=== PATIENT | female | born 1930 | race Caucasian/White ===

== ENCOUNTER 2016-12-11 11:52 | Inpatient (IN) | payer MEDICARE ==
[2016-12-11] MEDS ORDERED: Acetaminophen TAB* 325 MG PO PRN (18:14)
[2016-12-11] MEDS ORDERED: Ondansetron INJ* 2 MG/ML VIAL IV PRN (18:14)
[2016-12-11] MEDS ORDERED: HYDROcodone/ACETAMIN 5-325 MG* 1 TAB PO PRN (18:31)
[2016-12-11 19:20] LABS: Hematocrit 37 % (35-47); Hemoglobin 12.4 g/dl (12.0-16.0); Mean Corpuscular HGB Conc 34 g/dl (31-36); Mean Corpuscular Hemoglobin 30 pg (27-31); Mean Corpuscular Volume 88 fL (80-97); Mean Platelet Volume 9 um3 (7.4-10.4); Red Blood Count 4.19 10^6/ul (4.0-5.4); Red Cell Distribution Width 16 % (10.5-15); White Blood Count 6.9 10^3/ul (3.5-10.8)
[2016-12-11 19:31] LABS: BUN/Creatinine Ratio 15.2 (8-20); Calcium 8.9 mg/dL (8.6-10.3); EGFR African American 64.2 (>60); EGFR Non-African American 49.9 (>60)
[2016-12-11] MEDS ORDERED: Tamsulosin CAP* 0.4 MG PO SCH (21:00)
[2016-12-11 21:10] LABS: EGFR African American 62.2 (>60); EGFR Non-African American 48.3 (>60)
[2016-12-11] MEDS: Memantine TAB* 10 MG PO SCH (21:57)
[2016-12-11] MEDS: CMCS Simvastatin TAB(NF) 10 MG TAB PO SCH (21:58)
[2016-12-11] MEDS: Heparin VIAL(*) 5000 UNITS/ML VIAL (FIVE THOUSAND) SUBCUT SCH (22:00)
--- NOTE | 2016-12-11 23:06 | HP ---
CC: Dr. Rueda; Dr. Fernandez; Dr. Wilcox; Dr. Alex * HISTORY AND PHYSICAL: DATE OF ADMISSION: 12/11/16 PRIMARY CARE PROVIDER: Dr. Wilcox. ATTENDING PHYSICIAN WHILE IN THE HOSPITAL: Dr. Balta Katz * (report dictated by Kam Blake NP). CHIEF COMPLAINT: Abnormal CT findings. HISTORY OF PRESENT ILLNESS: I would like to preface this report by saying that the patient has a significant amount of underlying dementia. She is really unable to give much. She can give some history but she is confused and has difficulty with memory. She basically says to me that she was in the [facility] for about few weeks now. She is not quite sure as to why she was admitted there. She while there was found ultimately to have a lytic lesion in the proximal left femur that she was transferred here because of this reason because she continued to have significant amount of hip pain. The patient does not recall why she was transferred here and she does not recall why initially she went into the [facility] on 11/29/16. In touching base with the patient's son , the son stated that Ms. Riggins is 86, she has had dementia and progressive decline since September of this year. She just has not been doing well at home. She has been living alone and unable to care for herself. On 11/29/16, she was found by the patient's daughter- in-law, she was noted to be in stool and noted not be caring for herself, so she was brought to the hospital. She was admitted directly to the swing status to [facility]. The patient was having experiencing pain in her left hip and knee and not being getting out of bed for about 2 weeks prior to admission. She had not been able to walk and the pain had been present for about a month. She had x-rays of the hip and knee that did not reveal any findings. She was deconditioned and dehydrated, so she was admitted. She could not go home safely, so she was admitted to swing bed status , and piecing together the courses of events, it appears that she had on , a CT of the lower extremity, as she continued to have hip and knee pain, where there was found a lytic lesion and then further workup was obtained, and CT of the chest, abdomen, and pelvis was obtained and report there found large right pulmonary mass, likely primary lung neoplasm and pulmonary metastases throughout the lower lobes and multiple bone metastases. The patient at that point was transferred to [facility] after it was felt that she may need orthopedic evaluation for that lytic lesion and she also may need oncology evaluation. Discussing with the patient, she says she still has a significant amount of pain there. She can move the leg but it does hurt. She again has not been walking for some time. The patient denied any acute vomiting, diarrhea. There have been no reports of fevers. There have been no reports of abdominal pain. She denied any chest pain. She denies having any shortness of breath. Again, because of the new findings, she was transferred to the [facility] for further workup and evaluation. PAST MEDICAL HISTORY: Significant for: 1. Hypertension. 2. Dementia. 3. Hyperlipidemia. PAST SURGICAL HISTORY: The patient denied. MEDICATIONS: The home meds according to the [facility] notes and I took this off the H and P when she went to swing include: 1. Namenda 10 mg p.o. b.i.d. 2. Metoprolol 100 mg daily. 3. Simvastatin 5 mg at bedtime. 4. Aricept 5 mg daily. 5. Lisinopril/hydrochlorothiazide 1 tablet daily. ALLERGIES TO MEDICATIONS: Include no known drug allergies. FAMILY HISTORY: She cannot remember her parents. SOCIAL HISTORY: She is a former smoker. She does not drink alcohol. She had been living alone. Her surrogate decision makers are her children. REVIEW OF SYSTEMS: There is no documented fever. She does state that she has lost weight but she is unable to quantify how much. She denies any double vision. There is no ear discharge. She denies having any rhinorrhea. No sore throat. No thyroid enlargement. Denied having any chest pain. There is no orthopnea. There is no nocturnal dyspnea. She denies having any abdominal pain. There was no nausea, no vomiting. No dysuria, no frequency. There was no seizure, no loss of consciousness. No pruritus and no skin ulcerations. Review of 14 systems completed, all others negative. PHYSICAL EXAMINATION GENERAL: At this time, Ms. Riggins is an 86-year-old female patient. She is sitting in the hospital bed. She does not appear to be in any acute distress. VITAL SIGNS: Reveal blood pressure 119/50 with a pulse of 60, respirations 15, O2 sat 97%, temperature 97.8. HEENT: Head: Atraumatic. Eyes: EOMs are intact. Sclerae anicteric. Not pale. Throat: Oral mucosa appears to be dry. No oropharyngeal erythema. NECK: Supple. LUNGS: Clear to auscultation. No wheezes, rales, or rhonchi. HEART: Heart sounds S1 and S2. Regular rate and rhythm. No murmurs, rubs, or gallops. ABDOMEN: Soft, flat, nontender. Bowel sounds present. EXTREMITIES: Distal CSM checks intact to lower extremities. No peripheral edema. NEUROLOGIC: She is awake. She knows she is in the hospital. She is confused with month. She knows her name. Speech is clear. Tongue midline. She had no gross focal deficits. SKIN: Intact. DIAGNOSTIC STUDIES/LAB DATA: These are from 12/09/16, revealed she had a WBC of 5.59, RBC of 4.15, hemoglobin of 12.3, hematocrit of 36, platelet count of 137. Urine showed 3+ blood, 2+ bacteria. She was treated for UTI on 12/03/16. Sodium was 134, potassium 3.9, chloride 100, bicarb 28, BUN 19, creatinine 1.30 , glucose of 110. She had multiple imaging over at [facility]. CT chest, abdomen, and pelvis showed impression: Findings consistent with large right pulmonary mass likely primary lung neoplasm with ipsilateral and contralateral pulmonary metastases and findings consistent with multiple bone metastases. Consider bone scan as interval followup to determine needle biopsy of the right pulmonary lesion might be useful to determine histology. Unfortunately, I do not have the reports for the x-rays, but I do have report from the patient's CT lower extremity, which showed irregular lytic lesion in the anterior aspect of the proximal metaphysis of the left femur highly suspicious for malignant bone neoplasm, further characterization with MRI of the left femur with contrast is recommended. Old medical records were reviewed. ASSESSMENT AND PLAN: Ms. Riggins is an 86-year-old female patient coming in to the [facility] today for further evaluation of lytic lesion, in addition to this a pulmonary mass. She will be admitted under inpatient status for: 1. Pulmonary mass with metastases and lytic lesion. Again, I suspect that this is probably primary lung cancer. Unfortunately, I do not have any tissue. I did touch base with Dr. Talley, who will evaluate the films and see which lesion may be most amenable to biopsy and my plan will be to get in touch with Dr. Rueda to evaluate the patient and also Dr. Alex, who according to Dr. Cuba, who accepted the patient is aware of the patient's transfer. At this point, I did touch base with on-call Orthopedics just to go over activity and the patient at this point will be placed on bedrest. I have ordered pain medications for the patient for the time being and we will continue to proceed with further workup. 2. Dementia. Continue supportive care. 3. Hypertension. Continue meds as prescribed. 4. Hyperlipidemia. Continue statin therapy. 5. DVT prophylaxis. She is high risk and will be placed on heparin subcu. 6. Code status. She wishes to be a DNR. 7. Fluids, electrolytes, and nutrition. She can have a regular diet. TIME SPENT: On the admission was 60 minutes; greater than half the time was spent [id number] with the patient obtaining my history and physical, other half the time was spent going over the plan of care with the patient and implementing the plan of care. I did discuss the plan of care with my attending, Dr. Katz; he is in agreement. KAM BLAKE, MICHELLE [id number]/[facility] #: [id number] MTDD
[2016-12-12 01:13] LABS: Urine Bacteria Absent (Absent); Urine Bilirubin Negative (Negative); Urine Glucose Negative (Negative); Urine Nitrite Negative (Negative)
[2016-12-12] MEDS: Heparin VIAL(*) 5000 UNITS/ML VIAL (FIVE THOUSAND) SUBCUT SCH ×2 (05:55→20:40)
[2016-12-12 06:06] LABS: Hematocrit 35 % (35-47); Hemoglobin 12.2 g/dl (12.0-16.0); Mean Corpuscular HGB Conc 35 g/dl (31-36); Mean Corpuscular Hemoglobin 30 pg (27-31); Mean Corpuscular Volume 86 fL (80-97); Mean Platelet Volume 9 um3 (7.4-10.4); Red Blood Count 4.09 10^6/ul (4.0-5.4); Red Cell Distribution Width 16 % (10.5-15); White Blood Count 6.5 10^3/ul (3.5-10.8)
[2016-12-12 06:19] LABS: BUN/Creatinine Ratio 14.7 (8-20); Calcium 8.4 mg/dL (8.6-10.3); EGFR African American 66.4 (>60); EGFR Non-African American 51.6 (>60)
[2016-12-12] MEDS: Memantine TAB* 10 MG PO SCH ×2 (08:45→20:39)
[2016-12-12] MEDS: Polyethylene Glycol 3350* 17 GM PACKET PO SCH (08:45)
[2016-12-12] MEDS: Donepezil TAB* 5 MG PO SCH (08:45)
--- NOTE | 2016-12-12 08:51 | CONSULT ---
Consultation - Reason for Consultation Reason for Consultation: diffusely metastatic disease Ordering Provider: Arabella Gonzales Chief Complaint: transfer from [facility] History of Present Illness: Note history almost entirely from chart as Cele is fairly demented. Per admission note Cele was found at home in stool and unable to ambulate by a family member. She was apparently living at home alone despite her degree of dementia. She was admitted directly to a swing bed at [place] but apparently was not ambulatory and complaining of hip pain and so 2 weeks into her admission there had a hip CT which showed a destructive lytic lesion in her left proximal femur. This prompted CT C/A/P which I have personally reviewed and shows innumerable pulmonary lesions with a dominant Right sided lesion and L3 lytic lesion with thecal impingement. She was transferred for management of this. She is pleasantly demented and very unsure as to why she is in the hospital. She adamantly denies any hip/leg pain on the left or back pain. 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 She denies cough or SOB. She does think she has weight loss as her ring feels loose to her. She has a long standing history of tobacco use, but quit a long time ago. She has emphysema on her imaging. Allergies/Medications Medication: Acetaminophen (Tylenol Tab*) 650 mg PO Q4H PRN PRN Reason: FEVER/PAIN Hydrocodone Bitart/Acetaminophen ([place] 5-325 Tab*) 1 tab PO Q6H PRN PRN Reason: PAIN Aspirin (Aspirin Low Dose Tab*) 81 mg PO DAILY [facility] Last Admin: 12/12/16 08:45 Dose: 81 mg Donepezil HCl (Aricept Tab*) 10 mg PO DAILY [facility] Last Admin: 12/12/16 08:45 Dose: 10 mg Heparin Sodium (Porcine) (Heparin Vial(*)) 5,000 units SUBCUT Q8HR [facility] Last Admin: 12/12/16 05:55 Dose: 5,000 units Memantine (Namenda Tab*) 10 mg PO BID [facility] Last Admin: 12/12/16 08:45 Dose: 10 mg Metoprolol Tartrate (Lopressor Tab*) 100 mg PO DAILY [facility] Last Admin: 12/12/16 08:45 Dose: 100 mg Nystatin (Nystatin Suspension*) 500,000 units PO QID [facility] Stop: 12/19/16 08:45 Ondansetron HCl (Zofran Inj*) 4 mg IV Q6H PRN PRN Reason: NAUSEA Polyethylene Glycol/Electrolytes (Miralax*) 17 gm PO DAILY [facility] Last Admin: 12/12/16 08:45 Dose: 17 gm Simvastatin (Zocor(Nf)) 5 mg PO BEDTIME [facility] Last Admin: 12/11/16 21:58 Dose: 5 mg History - Past Medical History Other History: She is unclear on her history but does take antihypertensives. she can not remember having any surgeries - Family History Other Family History: she can not remember any family history - Social History Other Social History: she reports that she lives alone. she states that she cooks when there is food. she does not know how the food gets to her house and thinks her son pays her bills. Review of Systems - Review of Systems General Comments: very unreliable historian but reports only weight loss. she denies everything else other than left knee pain Physical Exam - Physical Exam Physical Examination: Vital Signs Temp Pulse Resp BP Pulse Ox 98.3 F 75 18 94/59 95 12/12/16 03:59 12/12/16 03:59 12/12/16 03:59 12/12/16 03:59 12/12/16 03:59 lying flat in bed in NAD perr eomi op thrush on tongue, very dry surprisingly clear to ascultation s1 s2 nl soft nt +Bs no LE edema decreased mobility of left leg, denies pain but can not fully lift it off the bed skin intact no NIKUNJ oriented to hospital, spring, no clue on year Results - Lab Results Lab Results: 12/11/16 12/11/16 12/11/16 18:31 18:31 20:09 WBC 6.9 RBC 4.19 Hgb 12.4 Hct 37 MCV 88 MCH 30 MCHC 34 RDW 16 H Plt Count 146 L MPV 9 Neut % (Auto) 80.5 Lymph % (Auto) 9.5 L [place] % (Auto) 6.5 Eos % (Auto) 2.8 Baso % (Auto) 0.7 Absolute Neuts (auto) 5.5 Absolute Lymphs (auto) 0.7 L Absolute Monos (auto) 0.4 Absolute Eos (auto) 0.2 Absolute Basos (auto) 0.1 Absolute Nucleated RBC 0 Nucleated RBC % 0 INR (Anticoag Therapy) APTT Sodium 131 L Potassium 4.0 Chloride 97 L Carbon Dioxide 26 Anion Gap 8 BUN 16 17 Creatinine 1.05 H 1.08 H Est GFR ( Amer) 64.2 62.2 Est GFR (Non-Af Amer) 49.9 48.3 BUN/Creatinine Ratio 15.2 Glucose 142 H Calcium 8.9 Urine Color Urine Appearance Urine pH Ur Specific [place] Urine Protein Urine Ketones Urine Blood Urine Nitrate Urine Bilirubin Urine Urobilinogen Ur Leukocyte Esterase Urine WBC (Auto) Urine RBC (Auto) Ur Squamous Epith Cells Urine Bacteria Urine Glucose 12/11/16 12/12/16 12/12/16 20:09 00:35 05:56 WBC 6.5 RBC 4.09 Hgb 12.2 Hct 35 MCV 86 MCH 30 MCHC 35 RDW 16 H Plt Count 135 L MPV 9 Neut % (Auto) 72.4 Lymph % (Auto) 13.4 L [place] % (Auto) 8.8 Eos % (Auto) 4.8 Baso % (Auto) 0.6 Absolute Neuts (auto) 4.7 Absolute Lymphs (auto) 0.9 L Absolute Monos (auto) 0.6 Absolute Eos (auto) 0.3 Absolute Basos (auto) 0 Absolute Nucleated RBC 0 Nucleated RBC % 0 INR (Anticoag Therapy) 0.96 APTT 29.1 Sodium Potassium Chloride Carbon Dioxide Anion Gap BUN Creatinine Est GFR ( Amer) Est GFR (Non-Af Amer) BUN/Creatinine Ratio Glucose Calcium Urine Color Straw Urine Appearance Clear Urine pH 6.0 Ur Specific [place] 1.005 L Urine Protein Negative Urine Ketones Trace H Urine Blood 2+ H Urine Nitrate Negative Urine Bilirubin Negative Urine Urobilinogen Negative Ur Leukocyte Esterase Trace H Urine WBC (Auto) 1+(6-10/hpf) H Urine RBC (Auto) Trace(0-2/hpf) Ur Squamous Epith Cells Present H Urine Bacteria Absent Urine Glucose Negative 12/12/16 05:56 WBC RBC Hgb Hct MCV MCH MCHC RDW Plt Count MPV Neut % (Auto) Lymph % (Auto) [place] % (Auto) Eos % (Auto) Baso % (Auto) Absolute Neuts (auto) Absolute Lymphs (auto) Absolute Monos (auto) Absolute Eos (auto) Absolute Basos (auto) Absolute Nucleated RBC Nucleated RBC % INR (Anticoag Therapy) APTT Sodium 132 L Potassium 4.0 Chloride 100 L Carbon Dioxide 23 Anion Gap 9 BUN 15 Creatinine 1.02 H Est GFR ( Amer) 66.4 Est GFR (Non-Af Amer) 51.6 BUN/Creatinine Ratio 14.7 Glucose 90 Calcium 8.4 L Urine Color Urine Appearance Urine pH Ur Specific [place] Urine Protein Urine Ketones Urine Blood Urine Nitrate Urine Bilirubin Urine Urobilinogen Ur Leukocyte Esterase Urine WBC (Auto) Urine RBC (Auto) Ur Squamous Epith Cells Urine Bacteria Urine Glucose Assessment and Plan Impression: 86 yo F w moderate dementia and a long standing smoking history presenting with failure to thrive and unability to ambulate and found to have a destructive lesion in her left femur, L3 lytic lesion and multiple pulmonary lesions suspicious for metastatic lung cancer. Her case is clearly complicated by her inability to retain information and report complaints. I have reviewed her imaging with Dr. Enamorado from radiology who feels that her left hip lesion would be amenable to ultrasound guided biopsy. I do think it would be reasonable to discuss surgery vs. palliative radiation with orthopedics and radiation oncology. I suspect that without surgery she will be nonambulatory for the duration of her life. In terms of palliative treatment for her cancer, I suspect that hospice will be the appropriate option for her given her age and my suspicion that she would not be able to reliably report side effects from any palliative therapy. This would clearly be the most appropriate conversation to have with family members around. I do think it is reasonable to get a MRI of her brain and lumbar spine with and without contrast as well to rule out RECHECKER disease and possible spinal cord compression. Finally I have taken the liberty of stopping her lisinopril given her relative hypotension this am and starting nystatin for her thrush.
[2016-12-12] MEDS ORDERED: Aspirin Low Dose CHEW TAB* 81 MG PO SCH (09:00)
[2016-12-12] MEDS ORDERED: Lisinopril TAB* 10 MG PO SCH (09:00)
[2016-12-12] MEDS ORDERED: Metoprolol Tartrate TAB* 100 MG TAB PO SCH (09:00)
[2016-12-12] MEDS ORDERED: fentaNYL* 50 MCG/ML 2 ML VIAL (100 MCG VIAL) ONE (10:36)
[2016-12-12] MEDS: Nystatin SUSPENSION* 100000 UNITS/ML 5 ML UDC PO SCH ×4 (11:25→20:40)
--- NOTE | 2016-12-12 12:49 | RAD ---
INDICATION: New workup for metastatic tumor. COMPARISON: December 09, 2016 CT. Written informed consent obtained from the patient's son. Timeout performed. PROCEDURE: Routine aseptic skin prep anterior proximal LEFT thigh. Exophytic lesion extending anteriorly from the subtrochanteric segment of the LEFT femur visualized on preliminary ultrasound scanning. Overlying soft tissues anesthetized with 4 mL 1% lidocaine. 2 fine-needle aspiration passes made with 22-gauge needles. Samples deemed sufficient by pathology. Procedure well tolerated without immediate complication. Sterile dressing applied. IMPRESSION: Successful ultrasound-guided LEFT femur bone biopsy.
--- NOTE | 2016-12-12 13:59 | PN ---
Subjective Date of Service: 12/12/16 Interval History: HOSPITALIST PROGRESS NOTE Patient seen and examined at bedside. Pleasantly confused, offers no complaints at this time. Denies pain. Family History: Unchanged from Admission Social History: Unchanged from Admission Past Medical History: Unchanged from Admission Objective Active Medications: Acetaminophen (Tylenol Tab*) 650 mg PO Q4H PRN PRN Reason: FEVER/PAIN Hydrocodone Bitart/Acetaminophen ([place] 5-325 Tab*) 1 tab PO Q6H PRN PRN Reason: PAIN Donepezil HCl (Aricept Tab*) 10 mg PO DAILY [facility] Last Admin: 12/12/16 08:45 Dose: 10 mg Memantine (Namenda Tab*) 10 mg PO BID [facility] Last Admin: 12/12/16 08:45 Dose: 10 mg Metoprolol Tartrate (Lopressor Tab*) 100 mg PO DAILY [facility] Last Admin: 12/12/16 08:45 Dose: 100 mg Nystatin (Nystatin Suspension*) 500,000 units PO QID [facility] Stop: 12/19/16 08:45 Last Admin: 12/12/16 13:17 Dose: 500,000 units Ondansetron HCl (Zofran Inj*) 4 mg IV Q6H PRN PRN Reason: NAUSEA Polyethylene Glycol/Electrolytes (Miralax*) 17 gm PO DAILY [facility] Last Admin: 12/12/16 08:45 Dose: 17 gm Simvastatin (Zocor(Nf)) 5 mg PO BEDTIME [facility] Last Admin: 12/11/16 21:58 Dose: 5 mg Vital Signs 12/12/16 12/12/16 12/12/16 03:59 08:00 08:55 Temperature 98.3 F 97.9 F Pulse Rate 75 76 Respiratory 18 17 17 Rate Blood Pressure 94/59 114/49 (mmHg) O2 Sat by Pulse 95 97 Oximetry Oxygen Devices in Use Now: None Appearance: Pleasant elderly lady lying in bed in NAD. Eyes: No Scleral Icterus Ears/Nose/Mouth/Throat: Mucous Membranes Moist, - - + oral thrush Neck: Trachea Midline Respiratory: Symmetrical Chest Expansion and Respiratory Effort, Clear to Auscultation Cardiovascular: RRR - Normal S1 and S2 Abdominal: NL Sounds; No Tenderness; No Distention Extremities: No Edema Neurological: - - AAOx2 (self and place), NIELSEN Lines/Tubes/Other Access: Clean, Dry and Intact Peripheral IV Nutrition: Taking PO's Result Diagrams: 12/12/16 05:56 12/12/16 05:56 Assess/Plan/Problems-Billing Assessment: Mrs. Riggins is an 86yo F with PMH of HTN, HLD, dementia, tobacco abuse, admitted to [facility] for progressive decline of her condition and left hip pain, found to have a large right pulmonary mass and multiple osseous lesion suggestive of metastatic disease, including a large lesion to her left hip. - Patient Problems (1) Lung mass Comment: - CT C/A/P shows large right pulmonary mass with ipsilateral and contralateral metastases, and also multple bony mets. - With her h/o tobacco abuse, eduar is likely a primary lung CA with mets. - Oncology input appreciated - Dr. Rueda discussed the case with Dr. Enamorado and they feel the best tissue source would be her left hip - plan for US guided biopsy today. - Also recommended MRI brain and LS spine with and without contrast to r/o further metastatic disease. - Will await path result, but suspect the best option for this patient would be Hospice, considering her advanced disease, but this will need to be discussed with her family after the results, when we know more about her prognosis. (2) Neoplasm of femur Comment: - S/p US guided biopsy today. - Orthopedics consult requested to see if patient is a surgical candidate for stabilization, as she would likely be non-ambulatory without surgery. (3) Dementia Comment: - Continue supportive care. (4) HTN (hypertension) Comment: - BP is on the lower side - Lisinopril was discontinued and we will continue Metoprolol with holding parameters. (5) Oral thrush Comment: - Nystatin. (6) DVT prophylaxis Comment: - SQ heparin. (7) Full code status Comment: - Full code for now, but will need to discuss code status again with her family in light of her diagnosis. Status and Disposition: Inpatient for management of lung tumor with metastases, requiring >48h for stabilization.
[2016-12-12] MEDS ORDERED: Gadoteridol* (CONTRAST) 279.3 MG/ML 10 ML IV ONE (14:13)
[2016-12-12] MEDS ORDERED: LORazepam TAB(*) 0.5 MG PO ONE (14:30)
--- NOTE | 2016-12-12 15:02 | RAD ---
HISTORY: Lytic lesion left femur COMPARISONS: CT dated December 08, 2016, biopsy dated December 12, 2016 VIEWS: 6, frontal and lateral views of the left hip and femur FINDINGS: BONE DENSITY: There is diffuse osteopenia. BONES: Again noted is an osteolytic lesion of the subtrochanteric proximal left femur, measuring approximately 6.6 x 2.7 cm in size, corresponding to the lesion noted on CT and the lesion biopsied earlier the same date. JOINTS: There is no arthropathy. ALIGNMENT: There is no dislocation. SOFT TISSUES: Unremarkable. OTHER FINDINGS: None. IMPRESSION: AGAIN NOTED IS THE BIOPSIED, OSTEOLYTIC LESION OF THE PROXIMAL LEFT FEMUR
[2016-12-12] MEDS: CMCS Simvastatin TAB(NF) 10 MG TAB PO SCH (20:39)
--- NOTE | 2016-12-12 21:34 | CONS ---
Amended report to enter date of consultation. CONSULTATION REPORT: DATE OF CONSULTATION: 12/12/2016. CONSULTATION: Orthopedic Surgery, Dr. Huang. REASON FOR CONSULT: Left hip pain, inability to ambulate. HISTORY OF PRESENT ILLNESS: The patient is a very pleasant 86-year-old female who was found in her home by her daughter in law, nonambulatory. She was taken to [facility] and was admitted. She underwent evaluation, where she was found to have a pulmonary nodule, lytic lesions in the L3 region, and a lytic region in the proximal left femur per report. She was transferred to [facility] due to the lytic lesions and per report due to pain. The patient was examined with her daughter in the room today. The patient's history is poor due to dementia. However, the daughter is able to give a good history. The mother had been in good health living independently ambulating with only a cane well prior to the incident. She had medical history significant for hypertension, dementia, and hyperlipidemia, however, had no known cancer diagnosis. Due to the patient's dementia, she is forgetful, but she has been told that she may have lung cancer and becomes upset when hearing this. She currently states that she does not have any pain in her left hip, lower spine, or chest area. She reports having a longstanding history of left knee, which is why she needed a cane to ambulate. She has been on bedrest since arrival to [facility]. PAST MEDICAL HISTORY: 1. Hypertension. 2. Dementia. 3. Hyperlipidemia. 4. Pulmonary nodules, lytic bone lesions, status post recent biopsy of the left femoral lytic lesion today. PAST SURGICAL HISTORY: The patient denies. MEDICATIONS: Include: 1. Namenda 10 mg p.o. b.i.d. 2. Metoprolol 100 mg daily. 3. Simvastatin 5 mg at bedtime. 4. Aricept 5 mg daily. 5. Lisinopril/hydrochlorothiazide 1 tablet daily for her home medications. ALLERGIES: No known drug allergies. FAMILY HISTORY: The patient could not remember her parents. SOCIAL HISTORY: Former smoker, no alcohol use. Living independently alone. Her son is her power of assistant produce manager. REVIEW OF SYSTEMS: The patient denies any chest pain, shortness of breath. No abdominal complaints. No complaints of pain anywhere at this timeframe other than chronic left knee pain. PHYSICAL EXAM: General: Well appearing, in no acute distress. Alert and oriented. Sitting in hospital bed joking pleasantly with daughter. Vital signs : Temperature 97.9, pulse rate 55, respiratory rate 15, O2 saturation on room air 96%, blood pressure 105/44. HEENT: Atraumatic. EOMI. Normocephalic. Lungs: Clear to auscultation bilaterally. No crackles, rhonchi or wheezes. Heart: Regular rate and rhythm. No murmurs, gallops or rubs. Abdomen: Soft, nontender, nondistended. No organomegaly present. Extremities: Bilateral posterior tibial pulses 2+. Full dorsiflexion and plantar flexion with equal strength bilaterally. Negative Homans' sign bilaterally. No tenderness with palpation over right or left knee joints. Full strength with flexion and extension, bilateral lower extremities. Full strength with abduction bilaterally; however, increased pain on the left hip with adduction against resistance. Tenderness to palpation over the left groin region; however, close to recent biopsy site. No edema. No signs of ecchymosis over the left hip. No tenderness over the greater trochanter. Neurologic: Alert and oriented. Sensation to light touch equal, bilateral lower extremities. ASSESSMENT AND PLAN: The patient is a very pleasant 86-year-old female who was admitted to [facility] after being discovered to have lytic lesions, pulmonary lesions , has a nonambulatory status with associated pain. 1. The patient will undergo X-rays today of the left hip and femur for further evaluation. These will be evaluated by Dr. Huang. I have discussed with the patient and her daughter the need for surgery in the future to help stabilize this area and prevent fracture. Currently, surgery is planned on Thursday with Dr. Alex for a femoral shira placement. 2. Awaiting biopsy results from that femur biopsy performed today. I discussed with Dr. Rueda if surgery will be feasible to do of the patient's life expectancy. She was in agreement that the surgery should be done to provide the best quality of life for the patient as she was fully ambulatory prior to this injury. She will follow the patient with regards to the oncologic workup. 3. Continue bedrest status throughout the weekend, physical therapy for obtaining muscle strength, flexibility, and the report on MRI of the brain and lumbar spine pending for evaluation of possible cauda equina or further metastatic disease. THOR MASON [id number]/[facility] #: [id number] [facility] MEDICAL CENTERLeslee
--- NOTE | 2016-12-13 00:17 | CONS ---
CC: Dr. Wilcox CONSULTATION REPORT: DATE OF ADMISSION: 12/11/16 DATE OF CONSULTATION: 12/12/16 PRIMARY CARE DOCTOR: Dr. Wilcox. CHIEF COMPLAINT: Abnormal CT findings with left hip lesion. HISTORY OF PRESENT ILLNESS: This is a pleasant 86-year-old female with a history of dementia, who was at [facility]. She does not report having any medical problems or any issues. She does not have any specific hip pain, but she reports knee pain. She denies any shortness of breath or chest pain. Based on the notes, she went to [place] on November 29. She was found by her [id number] with poor hygiene and inability to care for herself. On December 08, she had a CT scan of her hip and had progressive knee pain. A lytic lesion was found and then CT of chest, abdomen, and pelvis were obtained and found a large pulmonary mass with lung neoplasm and diffuse metastasis. She has already seen Oncology and had been worked up. The Orthopedic consult is for her left hip lesion. PAST MEDICAL HISTORY: Significant for high blood pressure, dementia, hyperlipidemia. PAST SURGICAL HISTORY: Negative. MEDICATIONS: 1. Namenda. 2. Metoprolol. 3. Simvastatin. 4. Aricept. 5. Lisinopril. 6. Hydrochlorothiazide. ALLERGIES: None. FAMILY HISTORY: She denies because she cannot remember her family. SOCIAL HISTORY: She is a former smoker. She does not drink alcohol. She lives alone. Her surrogate decision maker is her children. REVIEW OF SYSTEMS: She denies. She has some left knee pain. She denies any shortness of breath or chest pain. No nausea or vomiting based on the hospital notes. The 14-point review of systems is negative with the exception of left knee pain. PHYSICAL EXAMINATION: General: She appears to be in no acute distress. She is alert to herself. She knows she is in the hospital setting. She is hugging her stuffed animal. Vital Signs: Most recent vitals demonstrate temperature of 98.2, pulse rate of 80, respiratory rate of 18, oxygen saturation of 95, blood pressure 145/67. HEENT: EOMI. Chest: Clear. Heart: Regular rate and rhythm. Abdomen: Soft, nontender. Extremities: Examination of the left leg demonstrates the skin is intact. There is no erythema or she is not tender on log roll or with axial load. She is tender about the left knee. Her calf is soft and nontender. She is sensate to light touch about the first dorsal webspace, medial, lateral, dorsal and plantar foot although it is hard to say if she actually notes on doing that. She has 2+ PT pulse. LABORATORY DATA/DIAGNOSTIC DATA: On 12/12/16, white count of 6.5, hematocrit of 35, platelet count of 135. Sodium of 132, potassium 4.0, chloride 100, carbon dioxide 23, BUN 15, creatinine 1.02, calcium is 8.4. X-rays demonstrate a left hip lytic lesion in the intertrochanteric neck that does not encompass the entire subtrochanteric neck, it encompasses more than 50%. ASSESSMENT AND PLAN: She has newly diagnosed lung cancer with left hip lesion, this could potentially become high risk for fracture as discussed with my partners Dr. Alex, this will be amenable to elective intramedullary nailing, which Dr. Alex will be able to take care of on Thursday. For now, I would tell her she is allowed to have bedrest, but she is allowed to get into a chair. She is not allowed to stand or walk or twist or pivot, but she needs q.2 turns in a soft bed to allow for bedrest for 2 days. We will continue to follow her in the hospital and she should be n.p.o. after midnight. [id number]/[facility] #: [id number] MTDD
[2016-12-13] MEDS: Heparin VIAL(*) 5000 UNITS/ML VIAL (FIVE THOUSAND) SUBCUT SCH ×3 (06:19→20:31)
[2016-12-13] MEDS: Polyethylene Glycol 3350* 17 GM PACKET PO SCH (09:01)
[2016-12-13] MEDS: Nystatin SUSPENSION* 100000 UNITS/ML 5 ML UDC PO SCH ×5 (09:01→20:30)
[2016-12-13] MEDS: Donepezil TAB* 5 MG PO SCH (09:01)
[2016-12-13] MEDS: Metoprolol Tartrate TAB* 100 MG TAB PO SCH (09:01)
[2016-12-13] MEDS: Memantine TAB* 10 MG PO SCH ×2 (09:01→20:30)
--- NOTE | 2016-12-13 12:32 | PN ---
Subjective Date of Service: 12/13/16 Interval History: Patient denies pain. She has no clear understanding why she is in hospital. Here w/ son Frank and daughter. Frank is HCP. Had biopsy LT femur yesterday, results pending. Patient says she wants to go home and enjoy the sunshine. Family History: Unchanged from Admission Social History: Unchanged from Admission Past Medical History: Unchanged from Admission Objective Active Medications: Acetaminophen (Tylenol Tab*) 650 mg PO Q4H PRN PRN Reason: FEVER/PAIN Hydrocodone Bitart/Acetaminophen (Luckey 5-325 Tab*) 1 tab PO Q6H PRN PRN Reason: PAIN Donepezil HCl (Aricept Tab*) 10 mg PO DAILY [facility] Last Admin: 12/13/16 09:01 Dose: 10 mg Heparin Sodium (Porcine) (Heparin Vial(*)) 5,000 units SUBCUT Q8HR [facility] Last Admin: 12/13/16 06:19 Dose: 5,000 units Memantine (Namenda Tab*) 10 mg PO BID [facility] Last Admin: 12/13/16 09:01 Dose: 10 mg Metoprolol Tartrate (Lopressor Tab*) 100 mg PO DAILY [facility] Last Admin: 12/13/16 09:01 Dose: 100 mg Nystatin (Nystatin Suspension*) 500,000 units PO QID [facility] Stop: 12/19/16 08:45 Last Admin: 12/13/16 09:15 Dose: Not Given Ondansetron HCl (Zofran Inj*) 4 mg IV Q6H PRN PRN Reason: NAUSEA Polyethylene Glycol/Electrolytes (Miralax*) 17 gm PO DAILY [facility] Last Admin: 12/13/16 09:01 Dose: 17 gm Simvastatin (Zocor(Nf)) 5 mg PO BEDTIME [facility] Last Admin: 12/12/16 20:39 Dose: 5 mg Vital Signs 12/13/16 12/13/16 12/13/16 00:00 00:24 03:18 Temperature 36.9 C 36.8 C Pulse Rate 75 87 Respiratory 20 20 Rate Blood Pressure 116/61 126/61 (mmHg) O2 Sat by Pulse 93 94 93 Oximetry 12/13/16 06:48 Temperature 36.8 C Pulse Rate 83 Respiratory Rate Blood Pressure 129/67 (mmHg) O2 Sat by Pulse 94 Oximetry Oxygen Devices in Use Now: None Appearance: no distress, pleasant/cooperative Eyes: No Scleral Icterus Neck: NL Appearance and Movements; NL JVP Respiratory: Clear to Auscultation Cardiovascular: NL Sounds; No Murmurs; No JVD, RRR Abdominal: NL Sounds; No Tenderness; No Distention Extremities: No Edema Neurological: - - alert, oriented to person, "hospital" Lines/Tubes/Other Access: Clean, Dry and Intact Peripheral IV Result Diagrams: 12/12/16 05:56 12/12/16 05:56 Microbiology and Other Data: Microbiology Assess/Plan/Problems-Billing Assessment: Mrs. Riggins is an 86yo F with PMH of HTN, HLD, dementia, tobacco abuse, admitted to [facility] for progressive decline of her condition and left hip pain, found to have a large right pulmonary mass and multiple osseous lesion suggestive of metastatic disease, including a large lesion to her left hip. - Patient Problems (1) Lung mass Current Visit: Yes Status: Acute Priority: High Code(s): R91.8 - OTHER NONSPECIFIC ABNORMAL FINDING OF LUNG FIELD SNOMED Code(s): 799840435 Comment: - CT C/A/P shows large right pulmonary mass with ipsilateral and contralateral metastases, and also multple bony mets. - oncology input appreciated. Biopsy results pending. Would consider palliative radiation and any chemotherapy w/ low risk profile - MRI spine and brain pending - Discussed above w/ patient and 2 children, including HCP. (2) Dementia Current Visit: Yes Status: Chronic Priority: Medium Code(s): F03.90 - UNSPECIFIED DEMENTIA WITHOUT BEHAVIORAL DISTURBANCE SNOMED Code(s): 40540752 Comment: -Memory poor, but patient understands immediate questions, and elects to have non-invasive treatment only. (3) DNR (do not resuscitate) discussion Current Visit: Yes Status: Acute Priority: Medium Code(s): Z71.89 - OTHER SPECIFIED COUNSELING SNOMED Code(s): 144780710 Comment: Discussed code status w/ patient and HCP. She elects to have DNR/ DNI status. Son Frank and daughter agree. Status and Disposition: Inpatient for management of lung tumor with metastases, requiring >48h for stabilization.
[2016-12-13] MEDS: CMCS Simvastatin TAB(NF) 10 MG TAB PO SCH (20:30)
[2016-12-14] MEDS: Heparin VIAL(*) 5000 UNITS/ML VIAL (FIVE THOUSAND) SUBCUT SCH ×3 (05:50→21:44)
[2016-12-14 05:56] LABS: Hematocrit 36 % (35-47); Hemoglobin 12.4 g/dl (12.0-16.0); Mean Corpuscular HGB Conc 34 g/dl (31-36); Mean Corpuscular Hemoglobin 30 pg (27-31); Mean Corpuscular Volume 87 fL (80-97); Mean Platelet Volume 9 um3 (7.4-10.4); Red Blood Count 4.17 10^6/ul (4.0-5.4); Red Cell Distribution Width 16 % (10.5-15); White Blood Count 6.5 10^3/ul (3.5-10.8)
[2016-12-14] MEDS: Metoprolol Tartrate TAB* 100 MG TAB PO SCH (09:15)
[2016-12-14] MEDS: Memantine TAB* 10 MG PO SCH ×2 (09:16→21:44)
[2016-12-14] MEDS: Donepezil TAB* 5 MG PO SCH (09:16)
[2016-12-14] MEDS: Nystatin SUSPENSION* 100000 UNITS/ML 5 ML UDC PO SCH ×4 (09:16→21:44)
[2016-12-14] MEDS: Polyethylene Glycol 3350* 17 GM PACKET PO SCH (09:19)
[2016-12-14] MEDS ORDERED: Docusate CAP* 100 MG PO PRN (12:26)
--- NOTE | 2016-12-14 12:29 | PN ---
Subjective Date of Service: 12/14/16 Interval History: Patient reports she is uncomfortable lying in bed too long. Denies hip pain. Has some LT knee pain. No BM since admission per patient. Family History: Unchanged from Admission Social History: Unchanged from Admission Past Medical History: Unchanged from Admission Objective Active Medications: Acetaminophen (Tylenol Tab*) 650 mg PO Q4H PRN PRN Reason: FEVER/PAIN Hydrocodone Bitart/Acetaminophen (Elkins 5-325 Tab*) 1 tab PO Q6H PRN PRN Reason: PAIN Donepezil HCl (Aricept Tab*) 10 mg PO DAILY [facility] Last Admin: 12/14/16 09:16 Dose: 10 mg Heparin Sodium (Porcine) (Heparin Vial(*)) 5,000 units SUBCUT Q8HR [facility] Last Admin: 12/14/16 05:50 Dose: 5,000 units Memantine (Namenda Tab*) 10 mg PO BID [facility] Last Admin: 12/14/16 09:16 Dose: 10 mg Metoprolol Tartrate (Lopressor Tab*) 100 mg PO DAILY [facility] Last Admin: 12/14/16 09:15 Dose: 100 mg Nystatin (Nystatin Suspension*) 500,000 units PO QID [facility] Stop: 12/19/16 08:45 Last Admin: 12/14/16 09:16 Dose: 500,000 units Ondansetron HCl (Zofran Inj*) 4 mg IV Q6H PRN PRN Reason: NAUSEA Polyethylene Glycol/Electrolytes (Miralax*) 17 gm PO DAILY [facility] Last Admin: 12/14/16 09:19 Dose: Not Given Simvastatin (Zocor(Nf)) 5 mg PO BEDTIME [facility] Last Admin: 12/13/16 20:30 Dose: 5 mg Vital Signs 12/13/16 12/13/16 12/13/16 17:27 20:00 23:30 Temperature 36.7 C 37.1 C 36.8 C Pulse Rate 67 81 Respiratory 14 16 20 Rate Blood Pressure 106/51 106/58 114/46 (mmHg) O2 Sat by Pulse 95 93 95 Oximetry 12/14/16 12/14/16 12/14/16 00:00 03:58 07:48 Temperature 36.7 C 36.7 C Pulse Rate 76 82 Respiratory 16 20 Rate Blood Pressure 129/64 128/74 (mmHg) O2 Sat by Pulse 95 95 94 Oximetry Oxygen Devices in Use Now: None Appearance: no distress Ears/Nose/Mouth/Throat: Clear Oropharnyx Neck: Trachea Midline Respiratory: Symmetrical Chest Expansion and Respiratory Effort Cardiovascular: NL Sounds; No Murmurs; No JVD, RRR Abdominal: NL Sounds; No Tenderness; No Distention, No Hepatosplenomegaly Extremities: No Edema, - - L knee ROM w/o pain, no deformity, no tenderness, L hip ROM w/ pain Neurological: - - cooperative, confused Lines/Tubes/Other Access: Clean, Dry and Intact Peripheral IV Result Diagrams: 12/14/16 04:56 12/12/16 05:56 Microbiology and Other Data: Microbiology Assess/Plan/Problems-Billing Assessment: Mrs. Riggins is an 86yo F with PMH of HTN, HLD, dementia, tobacco abuse, admitted to [facility] for progressive decline of her condition and left hip pain, found to have a large right pulmonary mass and multiple osseous lesion suggestive of metastatic disease, including a large lesion to her left hip. - Patient Problems (1) Lung mass Current Visit: Yes Status: Acute Priority: High Code(s): R91.8 - OTHER NONSPECIFIC ABNORMAL FINDING OF LUNG FIELD SNOMED Code(s): 669635054 Comment: - CT C/A/P shows large right pulmonary mass with ipsilateral and contralateral metastases, and also multple bony mets. - oncology input appreciated. Biopsy results pending. Would consider palliative radiation and any chemotherapy w/ low risk profile - MRI spine and brain pending - Discussed above w/ patient and 2 children, including HCP. (2) Dementia Current Visit: Yes Status: Chronic Priority: Medium Code(s): F03.90 - UNSPECIFIED DEMENTIA WITHOUT BEHAVIORAL DISTURBANCE SNOMED Code(s): 58408515 Comment: -Memory poor, but patient understands immediate questions, and elects to have non-invasive treatment only. (3) DNR (do not resuscitate) discussion Current Visit: Yes Status: Acute Priority: Medium Code(s): Z71.89 - OTHER SPECIFIED COUNSELING SNOMED Code(s): 194079747 Comment: -Discussed code status w/ patient and HCP yesterday, patient is DNR. -May be candidate for hospice. -Awaiting path and oncology recommendations. Status and Disposition: Inpatient for management of lung tumor with metastases, requiring >48h for stabilization.
[2016-12-14] MEDS: CMCS Simvastatin TAB(NF) 10 MG TAB PO SCH (21:44)
[2016-12-15] MEDS: Heparin VIAL(*) 5000 UNITS/ML VIAL (FIVE THOUSAND) SUBCUT SCH ×3 (05:24→22:19)
[2016-12-15 06:47] LABS: BUN/Creatinine Ratio 16.8 (8-20); Calcium 8.7 mg/dL (8.6-10.3); EGFR African American 62.8 (>60); EGFR Non-African American 48.9 (>60); Potassium 3.9 mmol/L (3.5-5.0)
[2016-12-15] MEDS: Polyethylene Glycol 3350* 17 GM PACKET PO SCH (08:26)
[2016-12-15] MEDS: Metoprolol Tartrate TAB* 100 MG TAB PO SCH (08:38)
[2016-12-15] MEDS: Donepezil TAB* 5 MG PO SCH (08:38)
[2016-12-15] MEDS: Nystatin SUSPENSION* 100000 UNITS/ML 5 ML UDC PO SCH ×4 (08:38→20:33)
[2016-12-15] MEDS: Memantine TAB* 10 MG PO SCH (08:38)
--- NOTE | 2016-12-15 12:03 | RAD ---
HISTORY: Lung cancer COMPARISONS: None TECHNIQUE: The following sequences were obtained of the head: Sagittal T1-weighted images, axial T2-weighted images, axial FLAIR images, axial susceptibility weighted images, axial T1-weighted images. Additionally, axial diffusion-weighted images were obtained with calculated apparent diffusion coefficients. FINDINGS: The study is limited by patient motion artifact. Evaluation is also limited by the lack of intravenous contrast which limits the sensitivity for small parenchymal metastases HEMORRHAGE/INFARCT: There is no hemorrhage or acute infarct. MASSES/SHIFT: There is no mass or shift. EXTRA-AXIAL SPACES/MENINGES: There are no extra-axial fluid collections. SULCI AND VENTRICLES: There is diffuse and proportional enlargement of the sulci and ventricles. CEREBRUM: There are multiple scattered small foci of elevated T2/FLAIR signal within the periventricular and subcortical white matter. BRAINSTEM: There are no focal parenchymal abnormalities. CEREBELLUM: There are no focal parenchymal abnormalities. The cerebellar tonsils are normal in size and position. SELLA: The sella is normal. PINEAL: The pineal region is clear. CP ANGLE/TEMPORAL BONES: The labyrinthine structures are grossly normal. VESSELS: Normal flow-voids are noted within the visualized vertebral vasculature. DIFFUSION ABNORMALITIES: There are no diffusion abnormalities. PARANASAL SINUSES/MASTOIDS: The paranasal sinuses are clear. ORBITS: The orbits are unremarkable. BONES AND SOFT TISSUE: No bone or soft tissue abnormalities are noted. OTHER: None IMPRESSION: 1. LIMITED STUDY. 2. WITHIN THE LIMITATIONS OF THE STUDY, THERE IS NO SPACE-OCCUPYING LESION OR VASOGENIC EDEMA TO SUGGEST METASTATIC DISEASE. THE LACK OF INTRAVENOUS CONTRAST LIMITS THE SENSITIVITY FOR SMALL PARENCHYMAL METASTASES. 3. DIFFUSE INVOLUTIONAL CHANGE. 4. CHRONIC SMALL VESSEL ISCHEMIC CHANGE
--- NOTE | 2016-12-15 12:08 | RAD ---
HISTORY: Lung cancer, left hip pain, question spinal metastases COMPARISONS: None TECHNIQUE: The following sequences were obtained of the lumbar spine: Sagittal and axial T1- and T2-weighted images, coronal T2-weighted images, and sagittal STIR images. FINDINGS: The study is limited by patient motion artifact. Evaluation is also limited by lack of intravenous contrast. SPINAL CORD, CONUS, AND CAUDA EQUINA: The visualized spinal cord, conus, and cauda equina are normal in caliber, position, and signal intensity. ALIGNMENT: There is trace anterolisthesis of L4 on L5 VERTEBRAL BODIES: There is an expansile lesion of the left pedicle and hemivertebral body of L3 measuring approximately 4.8 x 2.3 x 1.9 cm in size. There is minimal epidural extension. There is extension along the left neural foramen of L3-L4. There is also mild edema paralleling the inferior endplate of L3 with depression of the inferior endplate. JOINTS: There is facet hypertrophic change. MUSCULATURE: There is mild fatty infiltration. INTERVERTEBRAL DISCS: There is diffuse loss of intervertebral disc height and T2 signal throughout the spine. AXIAL IMAGES: L2-L3: There is no disc herniation, spinal stenosis, or neuroforaminal narrowing. L3-L4: As noted above, there is a left pedicle and hemivertebral body lesion of L3 with moderate left neural foraminal narrowing at L3-L4. There is effacement of left lateral recess. There is no significant central canal stenosis. L4-L5: There is a broad-based disc bulge/rolled disc. There is facet and ligamentous of atrophy. There is mild right neural foraminal narrowing. There is no significant central canal stenosis. L5-S1: There is bilateral facet hypertrophy. There is no disc herniation, spinal stenosis, or neuroforaminal narrowing. SOFT TISSUES: The visualized soft tissues of the abdomen are unremarkable. 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 IMPRESSION: 1. THERE IS A LEFT PEDICLE LESION OF L3 MOST CONSISTENT WITH OSSEOUS METASTATIC DISEASE. THERE IS EXTENSION ALONG THE LEFT NEURAL FORAMEN WITH MODERATE LEFT NEURAL FORAMINAL NARROWING AT L3-L4. THERE IS MINIMAL EPIDURAL EXTENSION WITH PARTIAL EFFACEMENT OF THE LEFT LATERAL RECESS. THERE IS NO SIGNIFICANT CENTRAL CANAL STENOSIS. 2. ALSO NOTED IS BONE EDEMA PARALLELING THE INFERIOR END PLATE OF L3, CONSISTENT WITH A SUBACUTE COMPRESSION FRACTURE. THERE IS NO SIGNIFICANT OSSEOUS RETROPULSION. 3. DEGENERATIVE DISC DISEASE AND OSTEOARTHRITIS.
--- NOTE | 2016-12-15 17:10 | PN ---
Subjective Date of Service: 12/15/16 Interval History: Seen with daughter at bedside Discussed care with son/HCP Spenser Patient with severe short term memory loss She denies pain Family History: Unchanged from Admission Social History: Unchanged from Admission Past Medical History: Unchanged from Admission Objective Active Medications: Acetaminophen (Tylenol Tab*) 650 mg PO Q4H PRN PRN Reason: FEVER/PAIN Hydrocodone Bitart/Acetaminophen ([place] 5-325 Tab*) 1 tab PO Q6H PRN PRN Reason: PAIN Docusate Sodium (Colace Cap*) 100 mg PO BID PRN PRN Reason: CONSTIPATION Last Admin: 12/14/16 13:41 Dose: 100 mg Heparin Sodium (Porcine) (Heparin Vial(*)) 5,000 units SUBCUT Q8HR [facility] Last Admin: 12/15/16 14:21 Dose: 5,000 units Nystatin (Nystatin Suspension*) 500,000 units PO QID [facility] Stop: 12/19/16 08:45 Last Admin: 12/15/16 14:21 Dose: 500,000 units Ondansetron HCl (Zofran Inj*) 4 mg IV Q6H PRN PRN Reason: NAUSEA Polyethylene Glycol/Electrolytes (Miralax*) 17 gm PO DAILY [facility] Last Admin: 12/15/16 08:26 Dose: Not Given Vital Signs 12/14/16 12/14/16 12/14/16 18:18 20:03 20:11 Temperature 98.1 F Pulse Rate 66 68 Respiratory 18 Rate Blood Pressure 98/48 130/62 (mmHg) O2 Sat by Pulse 95 94 Oximetry 12/14/16 12/14/16 12/15/16 21:51 23:47 03:37 Temperature 98.2 F 97.2 F Pulse Rate 79 84 Respiratory 16 16 16 Rate Blood Pressure 136/65 128/49 (mmHg) O2 Sat by Pulse 94 93 Oximetry 12/15/16 12/15/16 12/15/16 07:32 08:00 12:02 Temperature 98.0 F Pulse Rate 71 63 Respiratory 17 18 16 Rate Blood Pressure 138/61 111/58 (mmHg) O2 Sat by Pulse 93 94 Oximetry 12/15/16 12/15/16 15:00 15:11 Temperature 97.9 F Pulse Rate 65 Respiratory 20 Rate Blood Pressure 98/52 86/46 (mmHg) O2 Sat by Pulse 94 Oximetry Oxygen Devices in Use Now: None Appearance: well appearing, NAD Eyes: No Scleral Icterus, PERRLA Ears/Nose/Mouth/Throat: NL Teeth, Lips, Gums, Clear Oropharnyx, Mucous Membranes Moist Neck: NL Appearance and Movements; NL JVP, Trachea Midline Respiratory: Symmetrical Chest Expansion and Respiratory Effort, Clear to Auscultation Cardiovascular: RRR Neurological: - - AOx2 to self and place, does not want to guess year Result Diagrams: 12/14/16 04:56 12/15/16 05:54 Microbiology and Other Data: Microbiology Assess/Plan/Problems-Billing Assessment: Mrs. Riggins is an 86yo F with PMH of HTN, HLD, dementia, tobacco abuse, admitted to [facility] for progressive decline of her condition and left hip pain, found to have a large right pulmonary mass and multiple osseous lesion suggestive of metastatic disease, including a large lesion to her left hip. - Patient Problems (1) Metastatic neoplasm Comment: path pending At this point son, daughter and patient would not opt for any chemotherapy however are open to idea of RT if offered. (2) Pathologic fracture Comment: family and patient are declining surgery (3) Depression Comment: son indicates long time depression since of in 2010 that has never been addressed. Start zoloft 50mg (4) Dementia Comment: stop namenda/aricept after discussion with son (5) DVT prophylaxis Comment: scq Status and Disposition: Inpatient for management of lung tumor with metastases, requiring >48h for stabilization.
--- NOTE | 2016-12-15 22:04 | CONS ---
CC: Prashanth Wilcox MD; Arabella Fink MD* PALLIATIVE CARE CONSULTATION: DATE OF CONSULT: 12/15/16 REFERRING PHYSICIAN: Arabella Fink MD PRIMARY CARE PHYSICIAN: Prashanth Wilcox MD HOSPITAL COURSE: This is an 86-year-old female with a past medical history of moderate to severe dementia, who was living alone prior to her arrival to [place] on the 29 of November for vomiting and diarrhea. At that time, it was felt that the patient was unable to be cared for at home with her decline in her dementia and the patient was placed on swing status at [place]. While she was on the swing status, she was having a lot of issues with hip and knee pain and on the , a CAT scan was done that showed a lytic lesion. Followup workup done and the CT of the chest abdomen and pelvis showed a large right pulmonary mass likely pulmonary lung neoplasm with metastasis throughout the lobes and multiple bone metastasis. The patient was then transferred to [facility] for further evaluation. The patient was seen by Oncology. She had an ultrasound-guided biopsy. The results are still pending. Oncology recommended referral to Orthopedics and possibly Radiation Oncology. Ortho evaluated her. Dr. Huang did as well felt that she may be a candidate for a pin placement. Followup with Dr. Alex did not think it was indicated. On my encounter, the patient is pleasant. Her daughter, Gisel, is at the bedside, who is her healthcare proxy. The patient denies having any pain at rest. Her daughter states that she had been barely ambulating due to significant amount of knee pain. When discussing options for management including surgery and radiation, the daughter and the patient have declined. They do not want any further workup or evaluation or management of her presentation. Oncology feels that this is most likely a primary pulmonary cancer with metastatic spread. The patient denies any shortness of breath. Again, no pain, no hip pain, no knee pain. No nausea, vomiting, diarrhea. No chest pain. Otherwise, remainder review of the system is negative. PAST MEDICAL HISTORY: 1. Dementia. 2. Hypertension. 3. Hyperlipidemia. 4. Tobacco use. 5. Now with multiple pulmonary lesions and lytic lesions suspicious for metastatic lung cancer. INPATIENT MEDICATIONS: 1. Tylenol 650 mg every 4 hours as needed. 2. Colace 100 mg p.o. b.i.d. as needed . 3. Aricept 10 mg daily. 4. Hydrocodone/acetaminophen 1 tab q.6 hours as needed. 5. Heparin 5000 units subcu t.i.d. 6. Namenda 10 mg p.o. b.i.d. 7. Metoprolol tartrate 100 mg p.o. daily. 8. Nystatin suspension 500,000 units p.o. 4 times a day. 9. Zofran 4 mg every 6 hours as needed. 10. MiraLAX 17 g daily. 11. Simvastatin 5 mg p.o. at bedtime. ALLERGIES: No known drug allergies. SOCIAL HISTORY: As mentioned, the patient was living alone up until her admission at [place] in the beginning of this month in November and was waiting for placement in a prison. Remote smoking history. No alcohol use or illicit drug use. Her daughter, Gisel, is her primary healthcare proxy. MOLST form is a DNR/DNI. REVIEW OF SYSTEMS: A 14-point review of systems as mentioned in the HPI, otherwise negative. FAMILY HISTORY: Unknown. PHYSICAL EXAMINATION: Vitals: Temp 97.9, pulse rate 65, respiratory rate 20, oxygen saturation 94% on room air, blood pressure 86/46. General: No acute distress. Resting comfortably with her daughter at the bedside joking around. HEENT: Head normocephalic. Pupils equal and reactive. Anicteric. Oropharynx : Mucous membranes are moist. Neck: Supple. No lymphadenopathy. Cardiac: Regular rate and rhythm. Soft systolic murmur heard throughout. Respiratory: Diminished breath sounds. No wheezing, rhonchi, or rales. Abdomen: Soft, nontender, nondistended. Extremities: No clubbing, cyanosis or edema. The patient was slightly short in the left lower extremity. When moving her left lower extremity, she appears to grimace, but denies any discomfort. Neurologic : Alert and oriented x3, oriented to self and place. No gross focal neurologic deficits. LABORATORY DATA: White count 6.5, hemoglobin 12.4, hematocrit 36, platelets 139. INR 0.96. Sodium 132, potassium 3.9, chloride 97, BUN 18, creatinine 1.07. RADIOGRAPHIC DATA: Brain MRI shows no space occupying lesion or vasogenic edema to suggest metastatic disease. Lumbar spine MRI, there is a left pedicle lesion of L3, most consistent with osseous metastatic disease. No significant central canal stenosis, also noted is bone edema paralleling the inferior end plate of L3 consistent with the subacute compression fracture. 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 Oncology and Ortho involved in her care. The patient's findings are suspicious for metastatic lung cancer with multiple pulmonary lesions and lytic lesions. The patient and the daughter do not want to pursue any further treatment and she is eligible for hospice. The plan is for her to go back to [facility] or to [facility] with hospice services. We will send a referral over to [facility]. The patient's blood pressure seems to be on the lower side. I did also discontinue metoprolol tartrate. Thank you for this consultation. I will follow along with you. TIME SPENT: Greater than 60 minutes were spent doing the consultation, more than half that time was spent in direct patient contact. [id number]/[facility] #: [id number] ROCKY
[2016-12-16] MEDS: Heparin VIAL(*) 5000 UNITS/ML VIAL (FIVE THOUSAND) SUBCUT SCH ×2 (05:18→15:42)
[2016-12-16] MEDS: Polyethylene Glycol 3350* 17 GM PACKET PO SCH (08:54)
[2016-12-16] MEDS: Nystatin SUSPENSION* 100000 UNITS/ML 5 ML UDC PO SCH ×4 (08:54→22:24)
[2016-12-16] MEDS: Sertraline* 50 MG TAB PO SCH (08:54)
--- NOTE | 2016-12-16 16:23 | PN ---
Subjective Date of Service: 12/16/16 Interval History: denies pain she is unable to tell em why she is in the hospital Family History: Unchanged from Admission Social History: Unchanged from Admission Past Medical History: Unchanged from Admission Objective Active Medications: Acetaminophen (Tylenol Tab*) 650 mg PO Q4H PRN PRN Reason: FEVER/PAIN Hydrocodone Bitart/Acetaminophen ([place] 5-325 Tab*) 1 tab PO Q6H PRN PRN Reason: PAIN Docusate Sodium (Colace Cap*) 100 mg PO BID PRN PRN Reason: CONSTIPATION Last Admin: 12/14/16 13:41 Dose: 100 mg Heparin Sodium (Porcine) (Heparin Vial(*)) 5,000 units SUBCUT Q8HR [facility] Last Admin: 12/16/16 15:42 Dose: 5,000 units Nystatin (Nystatin Suspension*) 500,000 units PO QID [facility] Stop: 12/19/16 08:45 Last Admin: 12/16/16 15:43 Dose: 500,000 units Ondansetron HCl (Zofran Inj*) 4 mg IV Q6H PRN PRN Reason: NAUSEA Last Admin: 12/16/16 11:52 Dose: 4 mg Polyethylene Glycol/Electrolytes (Miralax*) 17 gm PO DAILY [facility] Last Admin: 12/16/16 08:54 Dose: 17 gm Sertraline HCl (Zoloft*) 50 mg PO DAILY [facility] Last Admin: 12/16/16 08:54 Dose: 50 mg Vital Signs 12/15/16 12/15/16 12/15/16 19:54 20:00 23:55 Temperature 98.0 F 98.0 F Pulse Rate 67 70 Respiratory 18 16 16 Rate Blood Pressure 101/72 126/54 (mmHg) O2 Sat by Pulse 93 93 Oximetry 12/16/16 12/16/16 12/16/16 02:16 03:28 07:35 Temperature 97.9 F 98.2 F Pulse Rate 86 84 Respiratory 16 17 Rate Blood Pressure 113/62 135/66 (mmHg) O2 Sat by Pulse 98 93 92 Oximetry 12/16/16 08:00 Temperature Pulse Rate Respiratory 18 Rate Blood Pressure (mmHg) O2 Sat by Pulse 93 Oximetry Oxygen Devices in Use Now: None Appearance: NAD, sitting in chair, remainder of exam deferred Result Diagrams: 12/14/16 04:56 12/15/16 05:54 Microbiology and Other Data: Microbiology Assess/Plan/Problems-Billing Assessment: Mrs. 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 - Patient Problems (1) Metastatic neoplasm Comment: adenocarcinoma At this point son, daughter and patient would not opt for any chemotherapy however are open to idea of RT if offered. (2) Pathologic fracture Comment: family and patient are declining surgery (3) Depression Comment: son indicates long time depression since of in 2010 that has never been addressed. Start zoloft 50mg (4) Dementia Comment: stop namenda/aricept after discussion with son (5) DVT prophylaxis Comment: comfort measures Status and Disposition: Plan for d/c to [facility] when accepted with hospice
[2016-12-17] MEDS: Polyethylene Glycol 3350* 17 GM PACKET PO SCH (10:00)
[2016-12-17] MEDS: Sertraline* 50 MG TAB PO SCH (10:00)
[2016-12-17] MEDS: Nystatin SUSPENSION* 100000 UNITS/ML 5 ML UDC PO SCH ×5 (10:00→23:10)
--- NOTE | 2016-12-17 10:31 | PN ---
Progress Note - Progress Note Date of Service: 12/17/16 Note: Palliative care follow up note: Correction Son, Spenser Riggins is the HCP - spoke with him regarding her diagnosis and the lytic lesion in her hip. Concern with instability of the hip with the lytic lesions that it may result in complete fracture even with repositioning or rolling in the bed. Which would lead to significantly more pain. Pinning the hip may prevent further fracture. He understands, discussed with his mother and does not want to proceed with any further surgery. Patient still remains pain free and pleasantly confused.
--- NOTE | 2016-12-17 17:13 | PN ---
Subjective Date of Service: 12/17/16 Interval History: Pain L leg well controlled. Family History: Unchanged from Admission Social History: Unchanged from Admission Past Medical History: Unchanged from Admission Objective Active Medications: Acetaminophen (Tylenol Tab*) 650 mg PO Q4H PRN PRN Reason: FEVER/PAIN Last Admin: 12/17/16 12:57 Dose: 650 mg Hydrocodone Bitart/Acetaminophen ([place] 5-325 Tab*) 1 tab PO Q6H PRN PRN Reason: PAIN Docusate Sodium (Colace Cap*) 100 mg PO BID PRN PRN Reason: CONSTIPATION Last Admin: 12/14/16 13:41 Dose: 100 mg Nystatin (Nystatin Suspension*) 500,000 units PO QID [facility] Stop: 12/19/16 08:45 Last Admin: 12/17/16 16:57 Dose: 500,000 units Polyethylene Glycol/Electrolytes (Miralax*) 17 gm PO DAILY [facility] Last Admin: 12/17/16 10:00 Dose: 17 gm Sertraline HCl (Zoloft*) 50 mg PO DAILY [facility] Last Admin: 12/17/16 10:00 Dose: 50 mg Vital Signs 12/16/16 12/16/16 12/16/16 22:05 22:18 23:57 Temperature 97.0 F Pulse Rate 103 Respiratory 16 16 16 Rate Blood Pressure 90/57 (mmHg) O2 Sat by Pulse 94 Oximetry 12/17/16 12/17/16 12/17/16 03:29 08:00 14:43 Temperature 98.5 F 98.1 F Pulse Rate 94 97 Respiratory 20 17 Rate Blood Pressure 90/57 86/60 (mmHg) O2 Sat by Pulse 93 92 Oximetry 12/17/16 15:40 Temperature Pulse Rate Respiratory Rate Blood Pressure (mmHg) O2 Sat by Pulse 92 Oximetry Oxygen Devices in Use Now: None Appearance: Partly up in bed, alert. In good spirits. Looks comfortable. Eyes: No Scleral Icterus Extremities: No Edema, No Clubbing, Cyanosis, - Skin: No Rash or Ulcers, No Nodules or Sclerosis, - Neurological: Alert and Oriented x 3, NL Sensation, - - Some memory deficit, could not recalll where she lives Result Diagrams: 12/14/16 04:56 12/15/16 05:54 Microbiology and Other Data: Microbiology Assess/Plan/Problems-Billing Assessment: Mrs. 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 - Patient Problems (1) Metastatic neoplasm Current Visit: Yes Status: Acute Code(s): C79.9 - SECONDARY MALIGNANT NEOPLASM OF UNSPECIFIED SITE SNOMED Code(s): 078347643 Comment: adenocarcinoma At this point son, daughter and patient would not opt for any chemotherapy however are open to idea of RT if offered. (2) Depression Current Visit: Yes Status: Acute Code(s): F32.9 - MAJOR DEPRESSIVE DISORDER , SINGLE EPISODE, UNSPECIFIED SNOMED Code(s): 71855366 Comment: son indicates long time depression since of in 2010 that has never been addressed. Started zoloft 50mg 12/16/16. (3) Dementia Current Visit: Yes Status: Acute Code(s): F03.90 - UNSPECIFIED DEMENTIA WITHOUT BEHAVIORAL DISTURBANCE SNOMED Code(s): 95850704 Comment: stop namenda/aricept after discussion with son (4) Comfort measures only status Current Visit: Yes Status: Acute Code(s): Z51.5 - ENCOUNTER FOR PALLIATIVE CARE SNOMED Code(s): 89750786633055 Comment: Order active. Status and Disposition: Plan for d/c to [facility] when accepted with hospice
[2016-12-18 09:00] VITALS: BP 116/64
--- NOTE | 2016-12-18 09:19 | PN ---
Progress Note - Progress Note Date of Service: 12/18/16 Note: Time spent on discharge 45 minutes.
[2016-12-18] MEDS: Nystatin SUSPENSION* 100000 UNITS/ML 5 ML UDC PO SCH (09:32)
[2016-12-18] MEDS: Polyethylene Glycol 3350* 17 GM PACKET PO SCH (09:32)
[2016-12-18] MEDS: Sertraline* 50 MG TAB PO SCH (09:41)
--- NOTE | 2016-12-18 10:15 | TRS ---
CC: Dr. Prashanth Wilcox* TRANSFER SUMMARY: DATE OF ADMISSION: 12/11/16 DATE OF TRANSFER: 12/18/16 HOSPITAL COURSE: This 86-year-old woman presented because of an abnormal CT scan. The patient's memory is quite poor. On the day of discharge, she had to look at the Built-in Board to note the name of the hospital. She does not know the month or the year. She did not remember seeing me the day before. She was found to have a lytic lesion in the proximal left femur. She had been complaining of pain. The patient underwent an ultrasound-guided biopsy, which showed well differentiated adenocarcinoma, special stains indicated this is of lung origin. The patient was seen in consultation by Dr. Rueda. She was also seen by Palliative Care and the family opted for comfort measures only. I think mainly due to the patient's dementia and inability to understand and retain information about her medical condition. The patient appeared pretty comfortable. She did complain of pain in her sacral area. There is some erythema there, non-blanching, but the skin is intact. She was incontinent of stool. She is resistant to being positioned, not willfully but tends to, despite having pain in her sacral area, lay on her sacral area most of the day. FINAL DIAGNOSES: 1. Metastatic lung cancer. 2. Depression. 3. Dementia. MEDICATIONS ON TRANSFER/DISCHARGE: 1. Acetaminophen 650 mg every 4 hours p.r.n. 2. Docusate 100 mg b.i.d. 3. Hydrocodone/acetaminophen 5/325 one every 6 hours p.r.n. 4. Nystatin suspension 500,000 units p.o. q.i.d.. 5. Polyethylene glycol 17 g daily. 6. Sertraline 50 mg daily. [id number]/[facility] #: [id number] MTDD
== END 2016-12-18 12:40 | DRG 478 ==
LOC: MED 16:40
PROVIDERS: ADMIT Internal Medicine; ATTEND Internal Medicine
PROC: 0QB73ZX Excision of Left Upper Femur, Percutaneous Approach, Diagnostic (ICD-10-PCS; principal; 2016-12-11)
DX: C79.51 Secondary malignant neoplasm of bone (principal); C34.90 Malignant neoplasm of unspecified part of unspecified bronchus or lung; B37.0 Candidal stomatitis; M84.452A Pathological fracture, left femur, initial encounter for fracture; F03.90 Unspecified dementia, unspecified severity, without behavioral disturbance, psychotic disturbance, mood disturbance, and anxiety; E86.0 Dehydration; I10 Essential (primary) hypertension; F32.9 Major depressive disorder, single episode, unspecified; Z66 Do not resuscitate; R91.8 Other nonspecific abnormal finding of lung field; E78.5 Hyperlipidemia, unspecified; M25.562 Pain in left knee; Z87.891 Personal history of nicotine dependence; Z51.5 Encounter for palliative care
CPT/HCPCS: 10022; 36415; 70551; 72148; 76942; 80048; 81003; 81015; 82565; 84520; 85025; 85610; 85730; 87086; 88172; 88173; 88177; 88305; 88341; 88342; 88360; 93005; 94760; A9270-GY; J1644; J2405; J3010